=== PATIENT | male | born 1940 | race Caucasian/White ===

== ENCOUNTER → 2016-11-26 | Outpatient (CLI) | payer OTHER ==
[~2016-11-26] MED LIST: ACETAMINOPHEN PO; ASPIRIN; BENICAR; CLARITIN10 M3 PO; FERROUS SULFATE; HCTZ PO; MAG-OX 400400 MG PO; METOPROLOL TAR25 MG PO; MOBIC; MULTI-VITAMIN1 EAC1 PO; NORVASC; PRINIVIL10 MG PO; SAVAYSA60 MG PO; SOTALOL AF80 MG PO
--- NOTE | ~2016-11-26 | EKG ---
PATIENT: JERZY VARGAS UNIT #: [id number] Ventricular Rate: 79 BPM Atrial Rate: 65 BPM QRS Duration: 80 ms Q-T Interval: 362 ms QTC Calculation(Bezet): 415 ms Calculated R [place]: 54 degrees Calculated T [place]: 48 degrees Diagnosis Line: Atrial fibrillation Diagnosis Line: Abnormal ECG Diagnosis Line: No previous ECGs available Diagnosis Line: Confirmed by DONTA PARISI MD ([id number]) on Diagnosis Line: 11/26/2016 10:10:01 PM INTERPRETING MD: DAMION
== END | disposition home or self-care (01) ==
LOC: CECH 06:41 → EDSTATUS 08:00 → CECH 08:00 → CSUR 09:00
DX: Z01.810 Encounter for preprocedural cardiovascular examination (principal); I50.30 Unspecified diastolic (congestive) heart failure; I48.91 Unspecified atrial fibrillation; R94.31 Abnormal electrocardiogram [ECG] [EKG]; I51.7 Cardiomegaly; I35.1 Nonrheumatic aortic (valve) insufficiency; I34.0 Nonrheumatic mitral (valve) insufficiency; I36.1 Nonrheumatic tricuspid (valve) insufficiency; I70.0 Atherosclerosis of aorta
CPT/HCPCS: 93005; 93312; J2250; J3010

== ENCOUNTER 2017-02-04 17:16 | Emergency (ER) | payer OTHER ==
--- NOTE | ~2017-02-04 | EKG ---
PATIENT: JERZY VARGAS UNIT #: [id number] Ventricular Rate: 68 BPM Atrial Rate: 68 BPM P-R Interval: 140 ms QRS Duration: 70 ms Q-T Interval: 378 ms QTC Calculation(Bezet): 401 ms Calculated R [place]: 49 degrees Calculated T [place]: 37 degrees Diagnosis Line: Sinus rhythm with Premature supraventricular Diagnosis Line: complexes Diagnosis Line: Otherwise normal ECG Diagnosis Line: When compared with ECG of 26-NOV-2016 07:45, Diagnosis Line: Sinus rhythm has replaced Atrial fibrillation Diagnosis Line: Confirmed by ALEXANDRIA MATTHEWS MD ([id number]) on 02/07/2017 Diagnosis Line: 7:01:31 PM INTERPRETING MD: CASSIE CASANOVA
[~2017-02-04 17:16] MED LIST changes: -MAG-OX 400400 MG PO; -PRINIVIL10 MG PO; -SOTALOL AF80 MG PO
[2017-02-04] MEDS ORDERED: SOTALOL AF80 MG PO (17:33)
[2017-02-04] MEDS ORDERED: PRINIVIL10 MG PO (17:34)
[2017-02-04] MEDS ORDERED: MAG-OX 400400 MG PO (17:35)
[2017-02-04] MEDS ORDERED: SAVAYSA60 MG PO (17:41)
== END 2017-02-04 18:40 | disposition home or self-care (01) ==
LOC: SED 17:16
DX: I10 Essential (primary) hypertension (principal); I48.91 Unspecified atrial fibrillation; Z79.899 Other long term (current) drug therapy
CPT/HCPCS: 93005; 99283